=== PATIENT | female | born 1995 | race Caucasian/White ===

== ENCOUNTER 2017-12-17 19:12 | Emergency (ER) | payer OTHER ==
[~2017-12-17] VITALS: Ht 167.6 cm; Wt 59.0 kg
[~2017-12-17 19:12] MED LIST: CARBITROL; CYMBALTA60 MG PO; FLEXERIL PO; MECLIZINE HCL12.5 MG PO; MEDROLDOSEPACK PO; NITROFURANTOIN100 MG PO; PROAIR HFA8.5 GM IH; PROMETHAZINE12.5 M1 PO; ROBITUSSIN NIG118 ML PO; TORADOL 10 MG T10 MG PO; TRINATE TABLET1 TAB PO; VENTOLIN HFA 1818 GM INH; ZOFRAN4 MG PO; ZOLOFT; ZPAK PO; ZYPREXA7.5 MG PO
[2017-12-17] MEDS ORDERED: SERTRALINE HCL50 MG (19:27)
[2017-12-17] MEDS ORDERED: NORCO 5-325 TA1 EACH PO (19:42)
[2017-12-17 20:07] VITALS: BP 115/77
== END 2017-12-17 20:09 | disposition home or self-care (01) ==
LOC: M.ERS 19:12
DX: N62 Hypertrophy of breast (principal); F32.9 Major depressive disorder, single episode, unspecified

== ENCOUNTER 2019-02-06 21:04 | Emergency (ER) | payer OTHER, MEDICAID ==
[~2019-02-06] VITALS: Ht 167.6 cm; Wt 59.9 kg
[~2019-02-06 21:04] MED LIST changes: +NORCO 5-325 TA1 EACH PO; +SERTRALINE HCL50 MG
[2019-02-06] MEDS ORDERED: PROZAC20 MG PO (21:16)
[2019-02-06 21:38] LABS: URINE BILIRUBIN NEGATIVE (Negative); URINE BLOOD NEGATIVE (Negative); URINE CLARITY CLEAR; URINE COLOR YELLOW; URINE GLUCOSE-RANDOM NEGATIVE (Negative); URINE KETONES TRACE (Negative); URINE LEUKOCYTES-REFLEX TRACE (Negative); URINE NITRITE-REFLEX NEGATIVE (Negative); URINE PROTEIN NEGATIVE (Negative)
[2019-02-06 21:52] LABS: CRYSTALS None Seen /LPF (None Seen); MUCUS >6 Heavy strn/LPF (None Seen); SQUAMOUS >10 Many /LPF (0-3); URINE RBC None Seen /HPF (0-2)
[2019-02-06 21:53] LABS: CASTS None Seen /LPF (None Seen); URINE WBC-REFLEX 0-5 Rare /HPF (0-5)
[2019-02-06] MEDS ORDERED: VALIUM2 MG PO (22:30)
[2019-02-06] MEDS ORDERED: TORADOL 10 MG T10 MG PO (22:30)
[2019-02-06 22:45] VITALS: BP 103/61
== END 2019-02-06 22:47 | disposition home or self-care (01) ==
LOC: M.ERS 21:04
PROVIDERS: Personal Emergency Response Attendant
DX: G43.909 Migraine, unspecified, not intractable, without status migrainosus (principal); F32.9 Major depressive disorder, single episode, unspecified